=== PATIENT | male | born 1960 | race Caucasian/White ===

== ENCOUNTER 2016-10-13 17:22 | Emergency (ER) | payer OTHER ==
[2016-10-13] MEDS ORDERED: Aspirin Low Dose CHEW TAB* 81 MG PO ONE (17:52)
[2016-10-13 18:05] LABS: Hematocrit 45 % (42-52); Hemoglobin 14.6 g/dl (14.0-18.0); Mean Corpuscular HGB Conc 33 g/dl (31-36); Mean Corpuscular Hemoglobin 28 pg (27-31); Mean Corpuscular Volume 84 fL (80-94); Mean Platelet Volume 8 um3 (7.4-10.4); Red Blood Count 5.32 10^6/ul (4.0-5.4); Red Cell Distribution Width 14 % (10.5-15)
[2016-10-13 18:18] LABS: Albumin 4.1 g/dL (3.2-5.2); BUN/Creatinine Ratio 16.7 (8-20); EGFR African American 104.6 (>60); EGFR Non-African American 81.3 (>60); Globulin 2.1 g/dL (2-4); Potassium 3.9 mmol/L (3.5-5.0); Total Bilirubin 0.6 mg/dL (0.2-1.0); Total Protein 6.2 g/dL (6.4-8.9)
--- NOTE | 2016-10-13 19:20 | RAD ---
INDICATION: Chest pain and tachycardia COMPARISON: Recent comparison chest x-rays dated July 12, 2016 TECHNIQUE: PA and lateral views of the chest were obtained. FINDINGS: The heart and mediastinum are normal in size and contour. The lungs appear hyperaerated and on the lateral view the diaphragm are flattened and there is an increased retrosternal airspace, similar in appearance to the previous chest x-ray. Otherwise the lungs are grossly clear. There is no evidence of large pleural effusion. Visualized bones are normal for the patient's age. There is no radiographic evidence of free air beneath the diaphragm IMPRESSION: AGAIN SEEN IS THE STIGMATA OF CHRONIC OBSTRUCTIVE PULMONARY DISEASE WITHOUT RADIOGRAPHIC EVIDENCE OF ACUTE CARDIOPULMONARY ABNORMALITY.
--- NOTE | 2016-10-13 21:02 | ED ---
Hilaria Keys Janilya, scribed for Dave Rios MD on 10/13/16 at 1747 . HPI Chest Pain - HPI Summary HPI Summary: A 55 y/o male came in to [facility] presenting w/ a sudden onset of constant CP lasting 15-20 minutes that occurred today at 1630 when he was at rest. Pt states he was watching TV when he felt like he was having a rapid heart rate, then the CP came on and it felt like "bunch of needles going into chest". He says he broke out into sweats and got dizzy. Lately pt has been having a rapid heart rate, but CP and diaphoresis is new. The pain radiated to his left underarm and left inner elbow. The character of this pain is described as dull. Nothing made the pain better or worse. Pt denies SOB, nausea. He states he had "heaviness on chest". His CP was spontaneously resolved by the time the ambulance arrived to his home. At this time, pt feels asymptomatic and normal. SHx former smoker. FHx grandfather on both sides MS. Pt cannot take aspirin due to gastric bypass. - History of Current Complaint Chief Complaint: EDChestPainROMI Time Seen by Provider: 10/13/16 17:25 Onset/Duration: Started Hours Ago, Atraumatic, Still Present Timing: Constant Initial Severity: Moderate Current Severity: Moderate Pain Intensity: 0 Pain Scale Used: 0-10 Numeric Chest Pain Location: Diffuse Chest Pain Radiates: Yes Chest Pain Radiates To:: Arm - L Character: Dull/Aching, Sharp/Stabbing Aggravating Factor(s): Nothing Alleviating Factor(s): Nothing Associated Signs and Symptoms: Positive: Dizziness. Negative: Shortness of Breath - Allergy/Home Medications Allergies/Adverse Reactions: Allergies Allergy/AdvReac Type Severity Reaction Status Date / Time Bee's Allergy Severe Anaphylatic Uncoded 06/24/16 11:58 Shock PMH/Surg Hx/FS Hx/Imm Hx Previously Healthy: Yes Endocrine/Hematology History: Denies: Hx Anticoagulant Therapy, Hx Diabetes, Hx Thyroid Disease Cardiovascular History: Reports: Hx Angina, Hx Hypercholesterolemia, Hx Hypertension - NO MEDS, Other Cardiovascular Problems/Disorders - Atherosclerotic (mild) less then 50% Carotid Arteries; PAC's Denies: Hx Pacemaker/ICD Respiratory History: Reports: Hx Asthma - uses inhaler, Hx Sleep Apnea, Other Respiratory Problems/Disorders - Spontaneous Pneumothorax 1989 Denies: Hx Chronic Obstructive Pulmonary Disease (COPD) GI History: Reports: Hx Gastroesophageal Reflux Disease, Other GI Disorders - Weight Gain Denies: Hx Ulcer Sensory History: Reports: Hx Contacts or Glasses Denies: Hx Hearing Aid Opthamlomology History: Reports: Hx Contacts or Glasses Neurological History: Reports: Hx Migraine - NOT IN 4 MONTHS Psychiatric History: Reports: Hx Anxiety, Hx Depression Denies: Hx Panic Disorder - Surgical History Surgery Procedure, Year, and Place: Right side pneumothorax (chest tube placement). Gastric bypass 2014 Hx Anesthesia Reactions: No - Immunization History Date of Tetanus Vaccine: up to date Date of Influenza Vaccine: 2011 Infectious Disease History: No Infectious Disease History: Denies: Hx Clostridium Difficile, Hx Hepatitis, Hx Human Immunodeficiency Virus (HIV), Hx of Known/Suspected MRSA, Hx Shingles, Hx Tuberculosis, Hx Known/ Suspected VRE, Hx Known/Suspected VRSA, History Other Infectious Disease, Traveled Outside the [place] in Last 30 Days - Family History Known Family History: Positive: Hypertension Negative: Diabetes - Social History Alcohol Use: Occasionally Alcohol Amount: 2 beers 2-3 times a week Substance Use Type: Reports: None Hx Tobacco Use: No Smoking Status (MU): Former Smoker Type: Cigarettes Amount Used/How Often: 3 PACKS/DAY Have You Smoked in the Last Year: No Review of Systems Positive: Chest Pain - sharp, "needle-like" pain; chest heaviness Negative: Shortness Of Breath Negative: Nausea Positive: Other - dull ache in left underarm and left inner elbow Neurological: Other - diaphoresis, dizziness All Other Systems Reviewed And Are Negative: Yes Physical Exam Triage Information Reviewed: Yes Vital Signs On Initial Exam: Initial Vitals Temp Pulse Resp BP Pulse Ox 99.0 F 75 18 129/85 98 10/13/16 17:25 10/13/16 17:25 10/13/16 17:25 10/13/16 17:25 10/13/16 17:25 Vital Signs Reviewed: Yes Appearance: Positive: Well-Appearing, No Pain Distress Skin: Positive: Warm, Skin Color Reflects Adequate Perfusion, Dry Head/Face: Positive: Normal Head/Face Inspection Eyes: Positive: Normal ENT: Positive: Normal ENT inspection Neck: Positive: Supple, Nontender Respiratory/Lung Sounds: Positive: Clear to Auscultation, Breath Sounds Present Cardiovascular: Positive: RRR Abdomen Description: Positive: Nontender, Soft Bowel Sounds: Positive: Present Musculoskeletal: Positive: Normal Neurological: Positive: Normal Psychiatric: Positive: Affect/Mood Appropriate Diagnostics - Vital Signs Vital Signs Temp Pulse Resp BP Pulse Ox 10/13/16 17:25 99.0 F 75 18 129/85 98 - Laboratory Lab Results: Lab Results 10/13/16 10/13/16 10/13/16 Range/Units 17:45 17:45 17:45 WBC 7.0 (3.5-10.8) 10^3/ul RBC 5.32 (4.0-5.4) 10^6/ul Hgb 14.6 (14.0-18.0) g/dl Hct 45 (42-52) % MCV 84 (80-94) fL MCH 28 (27-31) pg MCHC 33 (31-36) g/dl RDW 14 (10.5-15) % Plt Count 157 (150-450) 10^3/ul MPV 8 (7.4-10.4) um3 Neut % (Auto) 72.4 (38-83) % Lymph % (Auto) 17.5 L (25-47) % Aiken % (Auto) 7.7 (1-9) % Eos % (Auto) 1.8 (0-6) % Baso % (Auto) 0.6 (0-2) % Absolute Neuts (auto) 5.0 (1.5-7.7) 10^3/ul Absolute Lymphs (auto) 1.2 (1.0-4.8) 10^3/ul Absolute Monos (auto) 0.5 (0-0.8) 10^3/ul Absolute Eos (auto) 0.1 (0-0.6) 10^3/ul Absolute Basos (auto) 0 (0-0.2) 10^3/ul Absolute Nucleated RBC 0.01 10^3/ul Nucleated RBC % 0.1 D-Dimer, Quantitative < 200 (Less Than 230) ng/mL Sodium 139 (133-145) mmol/L Potassium 3.9 (3.5-5.0) mmol/L Chloride 105 (101-111) mmol/L Carbon Dioxide 29 (22-32) mmol/L Anion Gap 5 (2-11) mmol/L BUN 16 (6-24) mg/dL Creatinine 0.96 (0.67-1.17) mg/dL Est GFR ( Amer) 104.6 (>60) Est GFR (Non-Af Amer) 81.3 (>60) BUN/Creatinine Ratio 16.7 (8-20) Glucose 78 (70-100) mg/dL Lactic Acid (0.5-2.0) mmol/L Calcium 9.0 (8.6-10.3) mg/dL Total Bilirubin 0.60 (0.2-1.0) mg/dL AST 21 (13-39) U/L ALT 24 (7-52) U/L Alkaline Phosphatase 83 (34-104) U/L Troponin I 0.00 (<0.04) ng/mL Total Protein 6.2 L (6.4-8.9) g/dL Albumin 4.1 (3.2-5.2) g/dL Globulin 2.1 (2-4) g/dL Albumin/Globulin Ratio 2.0 (1-3) 10/13/16 10/13/16 Range/Units 17:45 20:17 WBC (3.5-10.8) 10^3/ul RBC (4.0-5.4) 10^6/ul Hgb (14.0-18.0) g/dl Hct (42-52) % MCV (80-94) fL MCH (27-31) pg MCHC (31-36) g/dl RDW (10.5-15) % Plt Count (150-450) 10^3/ul MPV (7.4-10.4) um3 Neut % (Auto) (38-83) % Lymph % (Auto) (25-47) % Aiken % (Auto) (1-9) % Eos % (Auto) (0-6) % Baso % (Auto) (0-2) % Absolute Neuts (auto) (1.5-7.7) 10^3/ul Absolute Lymphs (auto) (1.0-4.8) 10^3/ul Absolute Monos (auto) (0-0.8) 10^3/ul Absolute Eos (auto) (0-0.6) 10^3/ul Absolute Basos (auto) (0-0.2) 10^3/ul Absolute Nucleated RBC 10^3/ul Nucleated RBC % D-Dimer, Quantitative (Less Than 230) ng/mL Sodium (133-145) mmol/L Potassium (3.5-5.0) mmol/L Chloride (101-111) mmol/L Carbon Dioxide (22-32) mmol/L Anion Gap (2-11) mmol/L BUN (6-24) mg/dL Creatinine (0.67-1.17) mg/dL Est GFR ( Amer) (>60) Est GFR (Non-Af Amer) (>60) BUN/Creatinine Ratio (8-20) Glucose (70-100) mg/dL Lactic Acid 0.9 (0.5-2.0) mmol/L Calcium (8.6-10.3) mg/dL Total Bilirubin (0.2-1.0) mg/dL AST (13-39) U/L ALT (7-52) U/L Alkaline Phosphatase (34-104) U/L Troponin I 0.00 (<0.04) ng/mL Total Protein (6.4-8.9) g/dL Albumin (3.2-5.2) g/dL Globulin (2-4) g/dL Albumin/Globulin Ratio (1-3) Result Diagrams: 10/13/16 17:45 10/13/16 17:45 Lab Statement: Any lab studies that have been ordered have been reviewed, and results considered in the medical decision making process. - Radiology CXR Xray Interpretation: Positive (See Comments) - IMPRESSION: AGAIN SEEN IS THE STIGMATA OF CHRONIC OBSTRUCTIVE PULMONARY DISEASE WITHOUT RADIOGRAPHIC EVIDENCE OF ACUTE CARDIOPULMONARY ABNORMALITY. Radiology Interpretation Completed By: Radiologist - EKG 0338 Cardiac Rate: NL - 73 bpm EKG Rhythm: Sinus Rhythm ST Segment: Normal Chest Pain Course/Dx - Course Course Of Treatment: Mr. Warren presented with an atypical chest pain. His W/U was negative here and I think he can be D/C'd to F/U with his PMD. He was cautioned that this could represent a symptomatic tachydysrythmia and that he should return by EMS if he has symptoms again. - Diagnoses Provider Diagnoses: Chest pain Discharge - Discharge Plan Condition: Stable Disposition: HOME Patient Education Materials: Chest Pain (ED) Referrals: [facility] PHYSICIAN REFERRAL [Outside] - 2 Days Additional Instructions: Please follow up with your primary care provider. The documentation as recorded by the Hilaria eric Janilya accurately reflects the service I personally performed and the decisions made by me, Dave Rios MD.
[2016-10-13 21:42] VITALS: BP 129/78
== END 2016-10-13 21:41 | disposition home or self-care (01) ==
LOC: ED 17:22
DX: R07.9 Chest pain, unspecified (principal); R42 Dizziness and giddiness; Z87.891 Personal history of nicotine dependence
CPT/HCPCS: 36415; 71020; 80053; 83605; 84484; 85025; 85379; 93005; 99284

== ENCOUNTER 2017-07-19 12:22 | Emergency (ER) | payer OTHER ==
[2017-07-19] MEDS ORDERED: NS 0.9% 1000 ML* 1,000 ML IV ONE (12:27)
[2017-07-19 13:08] LABS: ABS Basophils 0 10^3/ul (0-0.2); ABS Eosinophils 0.1 10^3/ul (0-0.6); ABS Lymphocytes 0.7 10^3/ul (1.0-4.8); ABS Monocytes 0.5 10^3/ul (0-0.8); ABS Neutrophils 4.9 10^3/ul (1.5-7.7); ABS Nucleated RBC 0 10^3/ul; Eosinophil % 1.3 % (0-6); Hematocrit 44 % (42-52); Hemoglobin 14.9 g/dl (14.0-18.0); Lymphocyte % 10.9 % (25-47); Mean Corpuscular HGB Conc 34 g/dl (31-36); Mean Corpuscular Hemoglobin 29 pg (27-31); Mean Corpuscular Volume 86 fL (80-94); Mean Platelet Volume 7 um3 (7.4-10.4); Nucleated Red Blood Cells % 0.1; Platelet Count 181 10^3/ul (150-450); Red Blood Count 5.06 10^6/ul (4.0-5.4); Red Cell Distribution Width 14 % (10.5-15); White Blood Count 6.1 10^3/ul (3.5-10.8)
[2017-07-19 13:19] LABS: EGFR Non-African American 76.4 (>60)
[2017-07-19 14:04] VITALS: BP 121/87
--- NOTE | 2017-07-19 18:06 | ED ---
Art Keys Natalie, scribed for Jose Cortes MD on 07/19/17 at 1235 . Syncope/Near Syncope - HPI Summary HPI Summary: The pt is a 56 y/o M presenting to the ED by EMS c/o syncope from low blood sugar less than an hour ago. The pt felt like his blood sugar was low so he ate a few pieces of candy. Per EMS, the pts said he passed out for 2-3 minutes. When EMS arrived, the pt was responsive but was lying on the floor. EMS reported the patients blood sugar at 90 and then at 110. Pt additionally c/ o diaphoresis, heart racing, and palpitations. Pt denies chest pain. He last ate a meal at 09:30 this morning. He has had low blood sugar in the past with 47 being the lowest he has recorded. He has hx of asthma and a gastric bypass. He does not smoke, but he does drink. - History Of Current Complaint Time Seen by Provider: 07/19/17 12:27 Hx Obtained From: Patient, EMS Onset/Duration: Sudden Onset Context: Witnessed - by Associated Head Trauma: No Aggravating Factor(s): Nothing Alleviating Factor(s): Nothing Associated Signs And Symptoms: Other - POSITIVE: diaphoresis, heart racing, palpitations; NEGATIVE: chest pain - Allergies/Home Medications Allergies/Adverse Reactions: Allergies Allergy/AdvReac Type Severity Reaction Status Date / Time Bee's Allergy Severe Anaphylatic Uncoded 07/19/17 12:31 Shock PMH/Surg Hx/FS Hx/Imm Hx Previously Healthy: No Endocrine/Hematology History: Reports: Hx Diabetes - "cured" by bariatric surgery Denies: Hx Anticoagulant Therapy, Hx Thyroid Disease, Hx Anemia Cardiovascular History: Reports: Hx Angina, Hx Hypercholesterolemia, Hx Hypertension - NO MEDS, Other Cardiovascular Problems/Disorders - Atherosclerotic (mild) less then 50% Carotid Arteries; PAC's Denies: Hx Pacemaker/ICD Respiratory History: Reports: Hx Asthma - uses inhaler, Hx Sleep Apnea, Other Respiratory Problems/Disorders - Spontaneous Pneumothorax 1989 Denies: Hx Chronic Obstructive Pulmonary Disease (COPD) GI History: Reports: Hx Gastroesophageal Reflux Disease, Other GI Disorders - Weight Gain Denies: Hx Jaundice, Hx Ulcer Sensory History: Reports: Hx Contacts or Glasses Denies: Hx Hearing Aid Opthamlomology History: Reports: Hx Contacts or Glasses Neurological History: Reports: Hx Migraine - NOT IN 4 MONTHS Psychiatric History: Reports: Hx Anxiety, Hx Depression Denies: Hx Panic Disorder - Surgical History Surgery Procedure, Year, and Place: Right side pneumothorax (chest tube placement). Gastric bypass 2014 Hx Anesthesia Reactions: No - Immunization History Date of Tetanus Vaccine: up to date Date of Influenza Vaccine: 2011 Infectious Disease History: Denies: Hx Clostridium Difficile, Hx Hepatitis, Hx Human Immunodeficiency Virus (HIV), Hx of Known/Suspected MRSA, Hx Shingles, Hx Tuberculosis, Hx Known/ Suspected VRE, Hx Known/Suspected VRSA, History Other Infectious Disease - Family History Known Family History: Positive: Hypertension Negative: Diabetes - Social History Alcohol Use: Weekly Alcohol Amount: 6 pack beer per week Substance Use Type: Reports: None Hx Tobacco Use: No Smoking Status (MU): Former Smoker Type: Cigarettes Amount Used/How Often: 3 PACKS/DAY Have You Smoked in the Last Year: No Review of Systems Positive: Skin Diaphoresis. Negative: Fever Positive: Palpitations, Other - heart racing. Negative: Chest Pain Positive: Syncope All Other Systems Reviewed And Are Negative: Yes Physical Exam Triage Information Reviewed: Yes Vital Signs On Initial Exam: Initial Vitals Temp Pulse Resp BP Pulse Ox 36.8 C 89 15 129/92 99 07/19/17 12:24 07/19/17 12:24 07/19/17 12:24 07/19/17 12:24 07/19/17 12:24 Vital Signs Reviewed: Yes Appearance: Positive: Well-Appearing, No Pain Distress Skin: Positive: Warm, Skin Color Reflects Adequate Perfusion, Dry Head/Face: Positive: Normal Head/Face Inspection Eyes: Positive: EOMI, JESSICA ENT: Positive: Normal ENT inspection Neck: Positive: Supple, Nontender Respiratory/Lung Sounds: Positive: Clear to Auscultation, Breath Sounds Present Cardiovascular: Positive: RRR, Pulses are Symmetrical in both Upper and Lower Extremities Abdomen Description: Positive: Nontender, Soft Bowel Sounds: Positive: Present Musculoskeletal: Positive: Normal, Strength/ROM Intact Neurological: Positive: Normal, Sensory/Motor Intact, Alert, Oriented to Person Place, Time Diagnostics - Vital Signs Vital Signs Temp Pulse Resp BP Pulse Ox 07/19/17 14:03 36.8 C 84 12 121/87 98 07/19/17 14:00 84 10 98 07/19/17 13:00 87 15 98 07/19/17 12:33 87 12 97 07/19/17 12:31 129/92 07/19/17 12:24 36.8 C 89 15 129/92 99 - Laboratory Lab Results: Lab Results 07/19/17 07/19/17 07/19/17 Range/Units 12:46 12:46 12:46 WBC 6.1 (3.5-10.8) 10^3/ul RBC 5.06 (4.0-5.4) 10^6/ul Hgb 14.9 (14.0-18.0) g/dl Hct 44 (42-52) % MCV 86 (80-94) fL MCH 29 (27-31) pg MCHC 34 (31-36) g/dl RDW 14 (10.5-15) % Plt Count 181 (150-450) 10^3/ul MPV 7 L (7.4-10.4) um3 Neut % (Auto) 79.7 (38-83) % Lymph % (Auto) 10.9 L (25-47) % Walsh % (Auto) 7.4 (1-9) % Eos % (Auto) 1.3 (0-6) % Baso % (Auto) 0.7 (0-2) % Absolute Neuts (auto) 4.9 (1.5-7.7) 10^3/ul Absolute Lymphs (auto) 0.7 L (1.0-4.8) 10^3/ul Absolute Monos (auto) 0.5 (0-0.8) 10^3/ul Absolute Eos (auto) 0.1 (0-0.6) 10^3/ul Absolute Basos (auto) 0 (0-0.2) 10^3/ul Absolute Nucleated RBC 0 10^3/ul Nucleated RBC % 0.1 Sodium 136 (133-145) mmol/L Potassium 4.3 (3.5-5.0) mmol/L Chloride 104 (101-111) mmol/L Carbon Dioxide 26 (22-32) mmol/L Anion Gap 6 (2-11) mmol/L BUN 13 (6-24) mg/dL Creatinine 1.01 (0.67-1.17) mg/dL Est GFR ( Amer) 98.3 (>60) Est GFR (Non-Af Amer) 76.4 (>60) BUN/Creatinine Ratio 12.9 (8-20) Glucose 139 H (70-100) mg/dL Lactic Acid 1.3 (0.5-2.0) mmol/L Calcium 8.8 (8.6-10.3) mg/dL Total Bilirubin 0.70 (0.2-1.0) mg/dL AST 17 (13-39) U/L ALT 15 (7-52) U/L Alkaline Phosphatase 69 (34-104) U/L Troponin I 0.00 (<0.04) ng/mL Total Protein 6.2 L (6.4-8.9) g/dL Albumin 4.1 (3.2-5.2) g/dL Globulin 2.1 (2-4) g/dL Albumin/Globulin Ratio 2.0 (1-3) Result Diagrams: 07/19/17 12:46 07/19/17 12:46 Lab Statement: Any lab studies that have been ordered have been reviewed, and results considered in the medical decision making process. - EKG 13:19 Cardiac Rate: NL EKG Rhythm: Sinus Rhythm - 92 BPM EKG Interpretation: Nml axis. Nml ST. Course/Dx Course Of Treatment: pt with hx of hypoglycemia and lightheadedness since gastric bypass. Was able to take some candy prior to syncope. Since has been normal. No palp or arrhythmia here. Arranged for Holter on . Labs benign. Return precautions given. - Diagnoses Provider Diagnoses: Hypoglycemia, Vaso vagal episode Discharge - Discharge Plan Condition: Good Disposition: HOME Patient Education Materials: Syncope (ED), Non-diabetic Hypoglycemia (ED) Referrals: Aggie Teran MD [Primary Care Provider] - Additional Instructions: Check blood sugars often, graze on small meals throughout the day. If you feel like this, sit or lie down immediately so you dont injure yourself if you fall. Holter Monitor: call to schedule. The documentation as recorded by the Art eric Natalie accurately reflects the service I personally performed and the decisions made by me, Jose Cortes MD.
== END 2017-07-19 14:26 | disposition home or self-care (01) ==
LOC: ED 12:22
DX: E16.2 Hypoglycemia, unspecified (principal); R55 Syncope and collapse; R00.2 Palpitations; Z87.891 Personal history of nicotine dependence; L74.519 Primary focal hyperhidrosis, unspecified
CPT/HCPCS: 36415; 80053; 83605; 84484; 85025; 93005; 96374; 99282